=== PATIENT | male | born 1955 | race Two or more races ===

== ENCOUNTER 2018-05-30 13:06 | Emergency (ER) | payer OTHER ==
[~2018-05-30] VITALS: Ht 177.8 cm; Wt 74.8 kg
[2018-05-30 13:23] VITALS: BP 124/67
--- NOTE | 2018-05-30 13:23 | NUR ---
ED Nurse Note: [place] 2 episodes of syncope. Per pt, he felt dizzy, fell down and lost consciousness while standing in line [place] cour[place]. When pt gained consciousnes, and tried to get up, he fell and lost consciousness again. Per, pt's Fiancee pt hit his head. Pt is AAO x4, ambulatory with non labored breathing. Follows commands. No bumps or open wounds in the head.
--- NOTE | 2018-05-30 13:35 | NUR ---
ED Nurse Note: Blood collected ad sent.
--- NOTE | 2018-05-30 13:52 | NUR ---
ED Nurse Note: Patient taken to CT via gurney.
[2018-05-30 13:56] LABS: HEMATOCRIT 44.3 % (42.0-52.0); HEMOGLOBIN 14.7 G/DL (14.2-18.0); MEAN CORPUSCULAR VOLUME 92 FL (80-99); PLATELET COUNT 127 K/UL (150-450); RED CELL DISTRIBUTION WIDTH 11.6 % (11.6-14.8); WHITE BLOOD COUNT 5.3 K/UL (4.8-10.8)
[2018-05-30 14:05] LABS: ANION GAP 5 mmol/L (5-15); BLOOD UREA NITROGEN 23 mg/dL (7-18); CARBON DIOXIDE 28 MMOL/L (21-32); CHLORIDE 106 MMOL/L (98-107); CREATININE 1.3 MG/DL (0.55-1.30); POTASSIUM 4.1 MMOL/L (3.5-5.1); SODIUM 139 MMOL/L (136-145)
--- NOTE | 2018-05-30 14:05 | NUR ---
ED Nurse Note: Pt came back from [facility] via [facility]. VSS. No acute distress at this time.
[2018-05-30 14:19] LABS: ALANINE AMINOTRANSFERASE 23 U/L (12-78); ALBUMIN 3.6 G/DL (3.4-5.0); ALBUMIN/GLOBULIN RATIO 1.1 (1.0-2.7); ALKALINE PHOSPHATASE 49 U/L (46-116); ASPARTATE AMINO TRANSFERASE 25 U/L (15-37); BILIRUBIN,TOTAL 0.4 MG/DL (0.2-1.0); CKMB 1.5 NG/ML (0.0-3.6); CREATINE KINASE 140 U/L (26-308)
--- NOTE | 2018-05-30 14:21 | Diagnostic Imaging Report ---
Indications: Syncope Technique: Spiral acquisitions obtained through the brain. Angled axial and coronal 5 x 5 mm slices were reconstructed. Total dose length product 1319.78 mGycm. CTDI vol(s) 70.38 mGy. Dose reduction achieved using automated exposure control Comparison: None. Findings: There is age-related enlargement of the ventricles and extra axial CSF spaces. There is periventricular deep white matter low-attenuation. There is a sizable old lacunar infarct extending from the left nathan radiata into the left basal ganglia. There is an age-indeterminate lacunar infarct involving the anterior limb of the left internal capsule. Small old lacunar infarct is seen in the right frontal deep white matter. No acute intracranial hemorrhage. No mass effect nor midline shift. Otherwise normal aguilera-white differentiation. There are dense middle cerebral artery calcifications and vertebral artery calcifications. The calvarium is intact. Visualized orbits and sinuses are unremarkable. The mastoids are clear. Impression: Negative for acute intracranial bleed or mass effect Age indeterminate although probably old lacunar infarct in the left internal capsule. MRI may use be useful to clarify acuity if clinically indicated Multiple old infarcts as noted Other chronic and age-related changes, as described The CT scanner at [facility] is accredited by the [employer] and the scans are performed using protocols designed to limit radiation exposure to as low as reasonably achievable to attain images of sufficient resolution adequate for diagnostic evaluation.
[2018-05-30] MEDS ORDERED: CARVEDILOL12.5 MG ORAL (14:22)
[2018-05-30] MEDS ORDERED: AMLODIPINE BESY10 MG ORAL (14:22)
[2018-05-30] MEDS ORDERED: MYCOPHENOLATE500 MG PO (14:22)
[2018-05-30] MEDS ORDERED: ASPIRIN325 MG ORAL (14:22)
[2018-05-30] MEDS ORDERED: ATORVASTATIN CA40 MG ORAL (14:22)
[2018-05-30] MEDS ORDERED: FISH OIL 500 M1 EAC4 PO (14:22)
[2018-05-30] MEDS ORDERED: MULTIVITAMINS1 EAC2 ORAL (14:22)
[2018-05-30 14:41] VITALS: BP 101/70
--- NOTE | 2018-05-30 14:41 | NUR ---
ED Nurse Note: Patient advised by Dr Page to stay for admission. Pt signed AMA form. Pt is AAO x4, ambulatory. ID band/IV removed. Pt left wth his fiancee.
--- NOTE | 2018-05-30 14:53 | Emergency Room Report ---
History of Present Illness General Chief Complaint: Syncope Source: Patient, EMS Present Illness HPI Patient presents with a syncopal episode he reports that he was standing in line he felt somewhat lightheaded and essentially lost consciousness Soon after that the patient tried to stand up and again had a second episode He had a recent URI symptom otherwise denies any recent neck pain or headache denies any chest pain denies any back or flank pain denies any focal weakness Patient has had a previous CVA denies much residual Allergies: Coded Allergies: No Known Allergies (Unverified , 05/30/18) Patient History Past Medical History: see triage record Pertinent Family History: none Reviewed Nursing Documentation: PMH: Agreed; PSxH: Agreed Nursing Documentation-PMH Past Medical History: No History, Except For Hx Cardiac Problems: Yes - Triple bypass 2009 Hx Cerebrovascular Accident: Yes - 1993 Review of Systems All Other Systems: negative except mentioned in HPI Physical Exam Vital Signs Date Time Temp Pulse Resp B/P (MAP) Pulse Ox O2 Delivery O2 Flow Rate FiO2 05/30/18 13:02 97.5 49 16 113/59 96 Room Air Sp02 EP Interpretation: reviewed, normal General Appearance: well appearing, no apparent distress Head: normocephalic, atraumatic Eyes: bilateral eye PERRL, bilateral eye EOMI ENT: hearing grossly normal, normal pharynx, TMs + canals normal, uvula midline Neck: full range of motion, supple, no meningismus, no bony tend Respiratory: lungs clear, normal breath sounds, no rhonchi, no respiratory distress, no retraction, no accessory muscle use Cardiovascular #1: normal peripheral pulses, regular rate, rhythm, no edema, no gallop, no JVD, no murmur Gastrointestinal: normal bowel sounds, non tender, soft, no mass, no organomegaly, non-distended, no guarding, no hernia, no pulsatile mass, no rebound Genitourinary: no CVA tenderness Musculoskeletal: normal inspection Neurologic: oriented x3, responsive, spray painter helper III-XII nml as tested, motor strength/ tone normal, sensory intact Psychiatric: mood/affect normal Skin: normal color, no rash, warm/dry, palpation normal Lymphatic: normal inspection, no adenopathy Medical Decision Making Diagnostic Impression: Primary Impression: Syncope ER Course Patient is a fairly complex patient with multiple differential to consideration including but not limited to cardiac cardiopulmonary and vascular emergencies Patient's CT revealing previous CVA Patient confirms this after discussion At this time given the patient's hypotensive episodes given the syncopal episode and his risk factors patient does require further inpatient care however he is refusing admission patient has full decision-making capacity understands the risk factors was provided copy of his blood work and EKG and reports that he will follow closely Labs Test 05/30/18 13:23 White Blood Count 5.3 K/UL (4.8-10.8) Red Blood Count 4.80 M/UL (4.70-6.10) Hemoglobin 14.7 G/DL (14.2-18.0) Hematocrit 44.3 % (42.0-52.0) Mean Corpuscular Volume 92 FL (80-99) Mean Corpuscular Hemoglobin 30.7 PG (27.0-31.0) Mean Corpuscular Hemoglobin Concent 33.2 G/DL (32.0-36.0) Red Cell Distribution Width 11.6 % (11.6-14.8) Platelet Count 127 K/UL (150-450) Mean Platelet Volume 12.4 FL (6.5-10.1) Neutrophils (%) (Auto) % (45.0-75.0) Lymphocytes (%) (Auto) % (20.0-45.0) Monocytes (%) (Auto) % (1.0-10.0) Eosinophils (%) (Auto) % (0.0-3.0) Basophils (%) (Auto) % (0.0-2.0) Differential Total Cells Counted 100 Neutrophils % (Manual) 65 % (45-75) Lymphocytes % (Manual) 22 % (20-45) Monocytes % (Manual) 12 % (1-10) Eosinophils % (Manual) 1 % (0-3) Basophils % (Manual) 0 % (0-2) Band Neutrophils 0 % (0-8) Platelet Estimate Decreased Platelet Morphology Normal Red Blood Cell Morphology Normal Prothrombin Time 10.6 SEC (9.30-11.50) Prothromb Time International Ratio 1.0 (0.9-1.1) Activated Partial Thromboplast Time 26 SEC (23-33) Sodium Level 139 MMOL/L (136-145) Potassium Level 4.1 MMOL/L (3.5-5.1) Chloride Level 106 MMOL/L (98-107) Carbon Dioxide Level 28 MMOL/L (21-32) Anion Gap 5 mmol/L (5-15) Blood Urea Nitrogen 23 mg/dL (7-18) Creatinine 1.3 MG/DL (0.55-1.30) Estimat Glomerular Filtration Rate 55.9 mL/min (>60) Glucose Level 118 MG/DL (74-106) Calcium Level 9.0 MG/DL (8.5-10.1) Total Bilirubin 0.4 MG/DL (0.2-1.0) Aspartate Amino Transf (AST/SGOT) 25 U/L (15-37) Alanine Aminotransferase (ALT/SGPT) 23 U/L (12-78) Alkaline Phosphatase 49 U/L (46-116) Total Creatine Kinase 140 U/L (26-308) Creatine Kinase MB 1.5 NG/ML (0.0-3.6) Creatine Kinase MB Relative Index 1.0 Troponin I 0.017 ng/mL (0.000-0.056) Pro-B-Type Natriuretic Peptide 60 pg/mL (0-125) Total Protein 6.8 G/DL (6.4-8.2) Albumin 3.6 G/DL (3.4-5.0) Globulin 3.2 g/dL Albumin/Globulin Ratio 1.1 (1.0-2.7) EKG Diagnostic Results Rate: normal Rhythm: NSR ST Segments: other - Nonspecific ST T-wave changes Rhythm Strip Diag. Results EP Interpretation: yes Rate: 60 Rhythm: NSR, no PVC's, no ectopy CT/MRI/US Diagnostic Results CT/MRI/US Diagnostic Results : Impression CT headImpression: Negative for acute intracranial bleed or mass effect Age indeterminate although probably old lacunar infarct in the left internal capsule. MRI may use be useful to clarify acuity if clinically indicated Multiple old infarcts as noted Other chronic and age-related changes, as described Last Vital Signs Date Time Temp Pulse Resp B/P (MAP) Pulse Ox O2 Delivery O2 Flow Rate FiO2 05/30/18 13:23 97.5 50 21 124/67 97 Room Air Status: improved Disposition: AGAINST MEDICAL ADVICE Condition: Improved Veronique Page DO May 30, 2018 14:52
--- NOTE | 2018-05-30 16:58 | Diagnostic Imaging Report ---
Indication: Chest pain Technique: One view of the chest Comparison: none Findings: The lungs and pleural spaces are clear. There is evidence of prior CABG Impression: No acute process
== END 2018-05-30 14:41 | disposition left against medical advice (07) ==
LOC: EDBD 13:06 → EMR 13:44
DX: R55 Syncope and collapse (principal); Z86.73 Personal history of transient ischemic attack (TIA), and cerebral infarction without residual deficits
CPT/HCPCS: 36415; 70450; 71045; 80053; 82550; 82553; 83880; 84484; 85007; 85025; 85610; 85730; 93005; 99284